=== PATIENT | male | born 1960 | race Caucasian/White ===

== ENCOUNTER 2017-11-04 02:33 | Emergency (ER) | payer OTHER ==
[~2017-11-04] VITALS: Ht 182.9 cm; Wt 90.9 kg
[~2017-11-04 02:33] MED LIST: NOHOMEMEDS; VENTOLIN HFA18 GM IH
[2017-11-04 03:00] LABS: HEMOGLOBIN 15.7 G/DL (12.5-16.6); MCH 31.4 PG (29.0-34.0); MCHC 34.1 G/DL (30.0-36.0); PLATELET COUNT 264 K/uL (156-360); RBC DIS.WIDTH-CV 13.3 % (11.8-14.6); WHITE BLOOD COUNT 9.8 K/uL (4.1-10.2)
[2017-11-04 03:09] LABS: CHLORIDE 109 mEq/L (99-109); SODIUM 139 mEq/L (136-147)
[2017-11-04 03:10] LABS: GLUCOSE 128 mg/dL (70-99)
[2017-11-04 03:14] LABS: CREATININE 0.7 mg/dL (0.6-1.3); GFR ESTIMATE (CALCULATED) > 59 mL/min/ (58.99-99999)
[2017-11-04 03:15] LABS: UREA NITROGEN (BUN) 20 mg/dL (9-23)
[2017-11-04 03:53] LABS: TROP-I INTERPRETATION NEGATIVE; TROPONIN-I 0.01 ng/mL (0.0-0.30)
[2017-11-04] MEDS ORDERED: PERCOCET 5/31 TABLET PO (04:58)
[2017-11-04] MEDS ORDERED: COLACE100 MG PO (04:58)
[2017-11-04] MEDS ORDERED: VENTOLIN HFA18 GM IH (04:58)
[2017-11-04] MEDS ORDERED: MOTRIN800 MG PO (04:58)
[2017-11-04 05:24] VITALS: BP 126/82
== END 2017-11-04 05:25 | disposition home or self-care (01) ==
LOC: EME 02:33
DX: S22.32XA Fracture of one rib, left side, initial encounter for closed fracture (principal); R91.1 Solitary pulmonary nodule; W11.XXXA Fall on and from ladder, initial encounter; F17.200 Nicotine dependence, unspecified, uncomplicated; J44.9 Chronic obstructive pulmonary disease, unspecified
CPT/HCPCS: 71046; 71250; 80048; 84484; 85027; 93005; 94640; 99281; 99285